=== PATIENT | female | born 1995 | race African-American/Black ===

== ENCOUNTER 2016-07-15 20:06 | Emergency (ER) | payer SELFPAY ==
[~2016-07-15] VITALS: Ht 167.6 cm; Wt 65.0 kg
[~2016-07-15 20:06] MED LIST: AVIATAB PO; FLAG500T PO
[2016-07-15 20:08] VITALS: BP 114/77; PULSE 75; RESP 16; TEMP 99.8; O2SAT 100
[2016-07-15] MEDS ORDERED: METR0.7528 VAGINAL (23:42)
== END 2016-07-15 22:15 | disposition left against medical advice (07) ==
LOC: NED 20:06
DX: Z03.89 Encounter for observation for other suspected diseases and conditions ruled out (principal)
CPT/HCPCS: 99281

== ENCOUNTER 2016-07-15 22:27 | Emergency (ER) | payer BC, OTHER ==
[~2016-07-15] VITALS: Ht 165.1 cm; Wt 72.7 kg
[2016-07-15 22:41] VITALS: BP 110/78; PULSE 94; RESP 16; TEMP 98.4; O2SAT 96
[2016-07-15 22:52] VITALS: BP 110/78; PULSE 94; RESP 16; TEMP 98.4; O2SAT 98
--- NOTE | 2016-07-15 23:13 | PD ---
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 Boyfriend was reportedly seen earlier in the day at [place] and diagnosed with urinary tract infection. Patient was treated for an STD. Patient states that he did not use condoms and she is concerned that she may have an STD as well. No prior history of STI. Patient denies . Patient denies dysuria frequency urgency and no vaginal bleeding or abnormal vaginal discharge. Patient denies any abdominal pain. Patient rates pain 0/10 in intensity. [facility] Past Medical History Narrative Medical Negative past that was reasonable negative surgical history; no tobacco use; nursing notes reviewed Medical History: Denies Significant Hx Developmental Delay: No Diminished Hearing: No Immunizations Current: Yes Tetanus Vaccination: > 5 Years Influenza Vaccination: Yes ?: Unknown LMP: 06/21/16 Past Surgical History Surgical History: No Previous Surgery Social History Alcohol Use: No Tobacco Use: No Substance Use: No Allergies-Medications (Allergen,Severity, Reaction): Coded Allergies: No Known Allergies (Verified , 07/15/16) Reported Meds & Prescriptions Reported Meds & Active Scripts Active Metrogel Vaginal Gel (Metronidazole Vaginal Gel) 0.75 % Gel 1 Appl VAGINAL HS Review of Systems Except as stated in HPI: all other systems reviewed are Neg Physical Exam Narrative GENERAL: Well-developed well-nourished female in no acute distress no respiratory distress SKIN: Warm and dry. HEAD: Normocephalic. EYES: No scleral icterus. No injection or drainage. NECK: Supple, trachea midline. No JVD or lymphadenopathy. CARDIOVASCULAR: Regular rate and rhythm without murmurs, gallops, or rubs. RESPIRATORY: Breath sounds equal bilaterally. No accessory muscle use. GASTROINTESTINAL: Abdomen soft, non-tender, nondistended. Pelvic exam: Normal external exam no lesions induration or erythema; speculum exam scant white mucous no blood no clots no tissue cervical os closed; bimanual exam no cervical motion tenderness no uterine enlargement no adnexal mass or tenderness MUSCULOSKELETAL: No cyanosis, or edema. BACK: Nontender without obvious deformity. No CVA tenderness. Data Data Last Documented VS Vital Signs Date Time Temp Pulse Resp B/P Pulse Ox O2 Delivery O2 Flow Rate FiO2 07/15/16 23:58 76 18 108/78 98 07/15/16 22:52 98.4 Orders Urinalysis - C+S If Indicated (07/15/16 23:00) Ed Urine Pregnancytest Poc (07/15/16 23:00) Gc And Chlamydia Pcr (07/15/16 23:09) Wet Prep Profile (07/15/16 23:09) Ceftriaxone Inj (Rocephin Inj) (07/15/16 23:15) Lidocaine 1% Inj (50 Ml) (Xylocaine 1% I (07/15/16 23:15) Azithromycin (Zithromax) (07/16/16 09:00) Azithromycin (Zithromax) (07/15/16 23:45) Labs Laboratory Tests Test 07/15/16 07/15/16 23:00 23:20 Urine Color YELLOW Urine Turbidity CLEAR Urine pH 5.5 Urine Specific [place] 1.010 Urine Protein NEG mg/dL Urine Glucose (UA) NEG mg/dL Urine Ketones 15 mg/dL Urine Occult Blood NEG Urine Nitrite NEG Urine Bilirubin NEG Urine Leukocyte Esterase NEG Urine RBC 0-2 /hpf Urine WBC 0-2 /hpf Urine Squamous Epithelial 0-5 /hpf Cells Urine Bacteria NONE /hpf Microscopic Urinalysis Comment CULT NOT INDICATED Clue Cells (Wet Prep) PRESENT Vaginal Trichomonas (Wet Prep) NONE SEEN Vaginal Yeast (Wet Prep) NONE SEEN Chlamydia trachomatis DNA NOT DETECTED (PCR) Neisseria gonorrhoeae DNA NOT DETECTED (PCR) MDM Medical Decision Making Medical Screen Exam Complete: Yes Emergency Medical Condition: Yes Medical Record Reviewed: Yes Interpretation(s) [id number] hCG: Negative UA: Grossly within normal limits Wet prep: Positive for cells Differential Diagnosis STI/STD, UTI, Narrative Course Patient administered presumptively Rocephin and azithromycin specimens collected via pelvic exam and urinalysis specimen collected; [id number] hCG negative Diagnosis Primary Impression: Screen for STD (sexually transmitted disease) Additional Impression: Vaginosis Referrals: Primary Care Physician call for appointment Patient Instructions: General Instructions Additional Instructions: Follow-up with primary care provider Complete course of antibiotic; remain abstinent until test results available Return to the emergency department for any concerns or change in condition Med/Other Pt SpecificInfo: Prescription(s) given Scripts Metronidazole Vaginal Gel (Metrogel Vaginal Gel)0.75 % Gel1 Appl VAGINAL HS #1 TUBE Ref 0 Prov:Yvonne Naranjo MD 07/15/16 Disposition: 01 DISCHARGE HOME Condition: Stable Yvonne Naranjo MD July 15, 2016 23:13
[2016-07-15 23:14] LABS: BLOOD, URINE NEG (NEG); GLUCOSE,URINE NEG (NEG); KETONE, URINE 15 mg/dL (NEG); NITRITE,URINE NEG (NEG); PH, URINE 5.5 (5.0-8.5)
[2016-07-15 23:15] LABS: URINE COLOR YELLOW (YELLW/STRAW)
[2016-07-15] MEDS ORDERED: cefTRIAXone 250 MG VIAL IM ONE (23:15)
[2016-07-15] MEDS ORDERED: LIDOCAINE HCL 1% 50 ML VIAL IM ONE (23:15)
[2016-07-15 23:18] LABS: COMMENT (UR) CULT NOT INDICATED; CULTURE IF INDICATED CULT NOT INDICATED; RBC, URINE 0-2 /hpf (0-3); SQUAMOUS EPITHELIAL CELL URINE 0-5 /hpf (0-5); WBC, URINE 0-2 /hpf (0-5)
[2016-07-15] MEDS ORDERED: METR0.7528 VAGINAL (23:42)
[2016-07-15] MEDS ORDERED: AZITHROMYCIN 250 MG TAB PO ONE (23:45)
[2016-07-15 23:58] VITALS: BP 108/78
[2016-07-16 03:34] LABS: CHLAMYDIA PCR NOT DETECTED (NOT DETECT); NEISSERIA PCR NOT DETECTED (NOT DETECT)
[2016-07-16] MEDS ORDERED: AZITHROMYCIN 250 MG TAB PO SCH (09:00)
== END 2016-07-15 23:59 | disposition home or self-care (01) ==
LOC: PHED 22:27
DX: Z11.3 Encounter for screening for infections with a predominantly sexual mode of transmission (principal); N76.0 Acute vaginitis
CPT/HCPCS: 81001; 84703; 87210; 87491; 87591; 96372; 99283; J0696

== ENCOUNTER 2016-10-10 02:24 | Emergency (ER) | payer OTHER, BC ==
[~2016-10-10] VITALS: Ht 167.6 cm; Wt 70.0 kg
[~2016-10-10 02:24] MED LIST changes: -AVIATAB PO; -FLAG500T PO; +METR0.7528 VAGINAL
[2016-10-10 02:25] VITALS: BP 124/73; PULSE 64; RESP 16; TEMP 98.2; O2SAT 100
[2016-10-10] MEDS ORDERED: IBUPROFEN 800 MG TAB PO ONE (03:00)
[2016-10-10] MEDS ORDERED: DICL75TA PO (03:11)
[2016-10-10] MEDS ORDERED: CYCL1TAB29 PO (03:11)
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
== END 2016-10-10 03:34 | disposition home or self-care (01) ==
LOC: NEPD 02:24
DX: S60.221A Contusion of right hand, initial encounter (principal); S50.812A Abrasion of left forearm, initial encounter; V43.52XA Car driver injured in collision with other type car in traffic accident, initial encounter; W22.10XA Striking against or struck by unspecified automobile airbag, initial encounter; Y92.410 Unspecified street and highway as the place of occurrence of the external cause
CPT/HCPCS: 73130; 99284

== ENCOUNTER 2016-12-23 21:31 | Emergency (ER) | payer BC, OTHER ==
[~2016-12-23] VITALS: Ht 165.1 cm; Wt 75.7 kg
[~2016-12-23 21:31] MED LIST changes: +CYCL10TA PO; +DICL75TA PO
[2016-12-23 21:34] VITALS: BP 115/61; TEMP 98.8; O2SAT 99
[2016-12-23 22:59] VITALS: BP_SYST 118; BP_SYST 119; BP_SYST 122; BP_DIAS 63; BP_DIAS 67; BP_DIAS 73; RESP 20
--- NOTE | 2016-12-23 23:00 | PD ---
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 Patient states that her periods are usually only 3-5 days in duration and therefore this was longer than normal. Patient did have normal periods induration appears in October and in September. Patient is sexually active and does not use contraceptives. Patient does not report any dysuria frequency or urgency. No flank pain or hematuria. Patient's had no abnormal vaginal discharge. Patient's had no dizziness lightheadedness near syncope syncope diaphoresis or dyspnea. Patient denies any chronic medical conditions. Patient reports that she's been under a large amount of stress. Patient has had associated crampy at the discomfort for which she has been taking intermittently Excedrin. She is not attempted any ibuprofen/Advil/Motrin for symptomatic relief. [facility] Past Medical History Narrative Medical Negative past medical history; negative surgical history; no tobacco use alcohol use; nursing notes reviewed Medical History: Denies Significant Hx Developmental Delay: No Diminished Hearing: No Immunizations Current: Yes Tetanus Vaccination: < 5 Years Influenza Vaccination: Yes ?: Unknown LMP: PRESENTLY Past Surgical History Surgical History: No Previous Surgery Social History Alcohol Use: No Tobacco Use: No Substance Use: No Allergies-Medications (Allergen,Severity, Reaction): Coded Allergies: No Known Allergies (Verified , 12/23/16) Reported Meds & Prescriptions Reported Meds & Active Scripts Active No Active Prescriptions or Reported Medications Review of Systems Except as stated in HPI: all other systems reviewed are Neg General / Constitutional: No: Fever, Chills HENT: No: Congestion Cardiovascular: No: Chest Pain or Discomfort Respiratory: No: Shortness of Breath Gastrointestinal: No: Abdominal Pain Genitourinary: Positive: Pelvic Pain, Vaginal Bleeding Musculoskeletal: No: Myalgias, Arthralgias Skin: No Rash Neurologic: No: Weakness Psychiatric: No: Anxiety Hematologic/Lymphatic: No: Lymph Node Enlargement Physical Exam Narrative GENERAL: Well-developed well-nourished female in no acute distress no respiratory distress SKIN: Warm and dry. HEAD: Normocephalic. EYES: No scleral icterus. No injection or drainage. NECK: Supple, trachea midline. No JVD or lymphadenopathy. CARDIOVASCULAR: Regular rate and rhythm without murmurs, gallops, or rubs. RESPIRATORY: Breath sounds equal bilaterally. No accessory muscle use. GASTROINTESTINAL: Abdomen soft, non-tender, nondistended. Pelvic exam: External exam no redness or induration no lesions; speculum exam scant clear mucus trace streaks of blood or mucous no clots no tissue no bleeding cervical os closed no discharge; bimanual exam no adnexal mass or tenderness no uterine enlargement or cervical motion tenderness again cervical os is closed. MUSCULOSKELETAL: No cyanosis, or edema. BACK: Nontender without obvious deformity. No CVA tenderness. Data Data Last Documented VS Vital Signs Date Time Temp Pulse Resp B/P (MAP) Pulse Ox O2 Delivery O2 Flow Rate FiO2 12/23/16 22:59 70 20 118/67 (84) 73 20 119/73 (88) 73 20 122/63 (82) 12/23/16 21:34 98.8 99 Orders Orders Complete Blood Count With Diff (12/23/16 22:39) Urinalysis - C+S If Indicated (12/23/16 22:39) Ed Urine Pregnancytest Poc (12/23/16 22:39) Orthostatic Vital Signs (12/23/16 22:39) Ibuprofen (Motrin) (12/23/16 23:30) Labs Laboratory Tests Test 12/23/16 22:50 12/23/16 22:55 Urine Color YELLOW Urine Turbidity CLEAR Urine pH 6.0 Urine Specific [place] 1.010 Urine Protein NEG mg/dL Urine Glucose (UA) NEG mg/dL Urine Ketones NEG mg/dL Urine Occult Blood TRACE Urine Nitrite NEG Urine Bilirubin NEG Urine Leukocyte Esterase NEG Urine RBC 0-2 /hpf Urine WBC 0-2 /hpf Urine Squamous Epithelial Cells 0-5 /hpf Urine Bacteria NONE /hpf Microscopic Urinalysis Comment CULT NOT INDICATED White Blood Count 8.6 TH/MM3 Red Blood Count 3.60 MIL/MM3 Hemoglobin 10.7 GM/DL Hematocrit 32.5 % Mean Corpuscular Volume 90.2 FL Mean Corpuscular Hemoglobin 29.7 PG Mean Corpuscular Hemoglobin Concent 32.9 % Red Cell Distribution Width 11.9 % Platelet Count 381 TH/MM3 Mean Platelet Volume 7.5 FL Neutrophils (%) (Auto) 64.7 % Lymphocytes (%) (Auto) 21.8 % Monocytes (%) (Auto) 8.1 % Eosinophils (%) (Auto) 1.8 % Basophils (%) (Auto) 3.6 % Neutrophils # (Auto) 5.5 TH/MM3 Lymphocytes # (Auto) 1.9 TH/MM3 Monocytes # (Auto) 0.7 TH/MM3 Eosinophils # (Auto) 0.2 TH/MM3 Basophils # (Auto) 0.3 TH/MM3 CBC Comment DIFF FINAL Differential Comment MDM Medical Decision Making Medical Screen Exam Complete: Yes Emergency Medical Condition: Yes Medical Record Reviewed: Yes Interpretation(s) CBC & BMP Diagram 12/23/16 22:55 Vital Signs Date Time Temp Pulse Resp B/P (MAP) Pulse Ox O2 Delivery O2 Flow Rate FiO2 12/23/16 22:59 70 20 118/67 (84) 73 20 119/73 (88) 73 20 122/63 (82) 12/23/16 22:42 77 20 12/23/16 21:34 98.8 115/61 (79) 99 POC hCG: Negative Urinalysis: Within normal range Differential Diagnosis Menses, , ectopic , dysfunctional uterine bleeding, uterine fibroid, UTI Narrative Course Orthostatic measurements are grossly within normal range without significant variance supine sitting standing; [id number] hCG is negative Hemoglobin is stable mildly decreased at 10.7 (in 2010 hemoglobin was 11.9) Patient administered ibuprofen 800 mg times one dose and stable for outpatient management and follow-up with her primary care provider Dr. Chew Diagnosis Primary Impression: Vaginal bleeding Additional Impression: Heavy menses Qualified Codes: N92.0 - Excessive and frequent menstruation with regular cycle Referrals: Primary Care Physician call for appointment Patient Instructions: General Instructions Additional Instructions: Take as needed ibuprofen/Advil/Motrin 600 mg as often as every 6 hours May take as much as 800 mg as often as every 8 hours Follow-up with primary care provider call office in a.m. to schedule follow-up appointment Return to emergency department for any concerns or change in condition Increase fluid hydration Scripts No Active Prescriptions or Reported Meds Disposition: 01 DISCHARGE HOME Condition: Stable Yvonne Naranjo MD Dec 23, 2016 22:59
[2016-12-23 23:01] LABS: BILIRUBIN, URINE NEG (NEG); BLOOD, URINE TRACE (NEG); GLUCOSE,URINE NEG (NEG); KETONE, URINE NEG (NEG); NITRITE,URINE NEG (NEG); URINE LEUKOCYTE ESTERASE NEG (NEG)
[2016-12-23 23:02] LABS: AUTOMATED NEUTROPHIL # 5.5 TH/MM3 (1.8-7.7); BASOPHIL # 0.3 TH/MM3 (0-0.2); BASOPHIL % 3.6 % (0.0-2.0); EOSINOPHIL # 0.2 TH/MM3 (0-0.4); EOSINOPHIL % 1.8 % (0.0-4.0); HEMATOCRIT 32.5 % (35.0-46.0); HEMOGLOBIN 10.7 GM/DL (11.6-15.3); LYMPH % 21.8 % (9.0-44.0); LYMPHOCYTE # 1.9 TH/MM3 (1.0-4.8); MEAN CELL VOLUME 90.2 FL (80.0-100.0); MEAN CORPUSCULAR HEMOGLOBIN 29.7 PG (27.0-34.0); MEAN CORPUSCULAR HGB CONC 32.9 % (32.0-36.0); MEAN PLATELET VOLUME 7.5 FL (7.0-11.0); MONO % 8.1 % (0.0-8.0); MONOCYTE # 0.7 TH/MM3 (0-0.9); NEUT % 64.7 % (16.0-70.0); PLATELET COUNT 381 TH/MM3 (150-450); RED CELL DISTRIBUTION WIDTH 11.9 % (11.6-17.2); WHITE BLOOD COUNT 8.6 TH/MM3 (4.0-11.0)
[2016-12-23 23:02] LABS: URINE COLOR YELLOW (YELLW/STRAW)
[2016-12-23 23:05] LABS: RBC, URINE 0-2 /hpf (0-3); SQUAMOUS EPITHELIAL CELL URINE 0-5 /hpf (0-5); WBC, URINE 0-2 /hpf (0-5)
[2016-12-23] MEDS ORDERED: IBUPROFEN 800 MG TAB PO ONE (23:30)
[2016-12-24 00:03] VITALS: BP 115/75
== END 2016-12-24 00:05 | disposition home or self-care (01) ==
LOC: PHED 21:31
DX: N92.0 Excessive and frequent menstruation with regular cycle (principal)
CPT/HCPCS: 81001; 84703; 85025; 99283